=== PATIENT | female | born 2000 | race Caucasian/White ===

== ENCOUNTER → 2021-06-13 20:32 | Observation (INO) ==
[2021-06-13 20:27] LABS: Bilirubin,Urine Negative (Negative); Blood,Urine Negative (Negative); Clarity,Urine Clear (Clear); Color,Urine Colorless (Yellow); Glucose,Urine (UA) Normal (Normal); Ketones,Urine Negative (Negative); Leukocyte Esterase,Urine Negative (Negative); Nitrite,Urine Negative (Negative); PH,Urine 7.5 pH Units (5.0-8.0); Protein,Urine Negative (Neg-Trace); Specific Gravity,Urine 1.006 (1.010-1.025); Urobilinogen,Urine Normal (Normal)
== END | disposition home or self-care (01) ==
LOC: 1NENULAB
PROVIDERS: ADMIT Advanced Practice Midwife; ATTEND Advanced Practice Midwife

== ENCOUNTER → 2021-08-05 13:07 | Observation (INO) ==
[2021-08-05 11:24] LABS: Bilirubin,Urine Negative (Negative); Blood,Urine Negative (Negative); Clarity,Urine Clear (Clear); Color,Urine Light-Yellow (Yellow); Glucose,Urine (UA) Normal (Normal); Ketones,Urine Negative (Negative); Leukocyte Esterase,Urine Negative (Negative); Nitrite,Urine Negative (Negative); Protein,Urine Negative (Neg-Trace); Urobilinogen,Urine Normal (Normal)
[2021-08-05 13:05] LABS: Trichomonas DNA Not Detected (Not Detect)
[2021-08-05 13:06] LABS: Candida DNA Not Detected (Not Detect); Gardnerella DNA Not Detected (Not Detect)
== END | disposition home or self-care (01) ==
LOC: 1NENULAB
PROVIDERS: ADMIT Advanced Practice Midwife; ATTEND Advanced Practice Midwife

== ENCOUNTER → 2021-08-09 21:55 | Observation (INO) ==
[2021-08-09 20:31] LABS: Bilirubin,Urine Negative (Negative); Blood,Urine Negative (Negative); Clarity,Urine Clear (Clear); Color,Urine Colorless (Yellow); Glucose,Urine (UA) Normal (Normal); Ketones,Urine Negative (Negative); Leukocyte Esterase,Urine Negative (Negative); Nitrite,Urine Negative (Negative); PH,Urine 6.5 pH Units (5.0-8.0); Protein,Urine Negative (Neg-Trace); Urobilinogen,Urine Normal (Normal)
[2021-08-09 21:20] LABS: Candida DNA Not Detected (Not Detect); Gardnerella DNA Not Detected (Not Detect); Trichomonas DNA Not Detected (Not Detect)
[~2021-08-09 21:55] MED LIST: Oxytocin 20 units/ LR 1000 mL 20 UNIT/1,000 ML BAG IVC SCH
== END | disposition home or self-care (01) ==
LOC: 1NENULAB
PROVIDERS: ADMIT Registered Nurse; ATTEND Registered Nurse

== ENCOUNTER 2021-09-02 10:00 | Inpatient (IN) ==
[2021-09-02] MEDS ORDERED: *HR* HYDROmorphone PF 0.5 MG/0.5 ML SYRINGE IVP PRN (10:22)
[2021-09-02] MEDS ORDERED: Ondansetron 4 MG/2 ML VIAL IVP PRN ×2 (10:22→14:53)
[2021-09-02] MEDS ORDERED: Ketorolac 30 MG/ML VIAL ONE (10:25)
[2021-09-02] MEDS ORDERED: *HR* FentaNYL (PF) 100 MCG/2 ML VIAL ONE (10:25)
[2021-09-02] MEDS ORDERED: *HR* Morphine Sulfate/PF 10 MG/10 ML AMPUL ONE (10:25)
[2021-09-02] MEDS ORDERED: Ondansetron 4 MG/2 ML VIAL ONE (10:25)
[2021-09-02] MEDS ORDERED: EPHEDrine 50 MG/ML VIAL ONE (10:25)
[2021-09-02] MEDS ORDERED: Acetaminophen IV 1,000 MG/100 ML BAG IVPB ONE (10:26)
[2021-09-02] MEDS ORDERED: CeFAZolin 2,000 MG/120 ML BAG IVPB ONE (10:37)
[2021-09-02] MEDS ORDERED: OXYTOCIN/RINGERS LACTATE 10 UNIT/166.6 ML BAG IVC ONE ×2 (10:37→14:53)
[2021-09-02] MEDS ORDERED: Metoclopramide 10 MG/2 ML VIAL IVP ONE (10:37)
[2021-09-02] MEDS ORDERED: Famotidine 20 MG/2 ML VIAL IVP ONE (10:37)
[2021-09-02] MEDS ORDERED: Azithromycin 500 MG in 0.9 % Sodium Chloride 250 ML IVPB PRN (10:37)
[2021-09-02] MEDS ORDERED: Ringers Solution, Lactated 1,000 ML ONE ×2 (10:51→10:58)
[2021-09-02] MEDS ORDERED: Ringers Solution, Lactated 1,000 ML IVC ONE (10:56)
[2021-09-02] MEDS ORDERED: Oxytocin 30 UNIT/503 ML BAG IVC ONE (10:59)
[2021-09-02 11:04] LABS: Basophils % 0.3 %; Eosinophils # 0.1 K/mcL (0.0-0.6); Eosinophils % 0.8 %; Hematocrit 39.8 % (35.3-44.9); Hemoglobin 13.3 g/dL (11.5-15.4); Immature Granulocytes % 0.6 % (0-4); Lymphocytes # 3.4 K/mcL (0.6-4.6); Lymphocytes % 35.7 %; Mean Corpuscular HGB Conc 33.4 g/dL (31.6-35.5); Mean Corpuscular Hemoglobin 30.6 pg (28.0-33.3); Mean Corpuscular Volume 91.7 fL (83.0-100.0); Monocytes # 0.8 K/mcL (0.0-1.3); Monocytes % 8.1 %; Neutrophils # 5.3 K/mcL (1.6-8.9); Platelet Count 245 K/mcL (140-400); Red Blood Count 4.34 M/mcL (3.82-4.97); Red Cell Distribution Width 11.6 % (11.5-14.5); Segmented Neutrophils % 54.5 %; White Blood Count 9.6 K/mcL (4.3-11.1)
[2021-09-02] MEDS ORDERED: *HR* Midazolam HCl 2 MG/2 ML VIAL ONE (11:47)
[2021-09-02 13:01] LABS: Amphetamine Screen,Urine Negative ng/mL (Cutoff=1000); Barbiturate Screen,Urine Negative ng/mL (Cutoff=200); Benzodiazepines Screen,Urine Negative ng/mL (Cutoff=200); Cannabinoid Screen,Urine Negative ng/mL (Cutoff = 50); Cocaine Screen,Urine Negative ng/mL (Cutoff= 300); Opiate Screen,Urine Negative ng/mL (Cutoff=300); Phencyclidine Screen,Urine Negative ng/mL (Cutoff=25)
[2021-09-02] MEDS ORDERED: Rho Immune Globulin 1,500 UNIT SYRINGE IM ONE (14:53)
[2021-09-02] MEDS ORDERED: Ringers Solution, Lactated 1,000 ML IVC SCH (14:53)
[2021-09-02] MEDS ORDERED: Metoclopramide 10 MG/2 ML VIAL IVP PRN (14:53)
[2021-09-02] MEDS ORDERED: Simethicone 80 MG TAB.CHEW PO PRN (14:53)
[2021-09-02] MEDS: Ibuprofen 600 MG TABLET PO SCH ×2 (15:29→21:24)
[2021-09-02] MEDS: Acetaminophen 325 MG TABLET PO SCH ×2 (15:29→21:24)
[2021-09-02 20:56] VITALS: O2SAT 99
[2021-09-03] MEDS: Acetaminophen 325 MG TABLET PO SCH ×4 (03:23→22:25)
[2021-09-03] MEDS: Ibuprofen 600 MG TABLET PO SCH ×4 (03:24→22:24)
[2021-09-03 03:56] LABS: Basophils % 0.2 %; Eosinophils % 0.3 %; Hematocrit 29.2 % (35.3-44.9); Immature Granulocytes % 0.6 % (0-4); Lymphocytes # 3.2 K/mcL (0.6-4.6); Lymphocytes % 24.6 %; Mean Corpuscular HGB Conc 34.2 g/dL (31.6-35.5); Mean Corpuscular Hemoglobin 31.8 pg (28.0-33.3); Mean Platelet Volume 9.9 fL (9.4-12.4); Monocytes # 1.1 K/mcL (0.0-1.3); Monocytes % 8.6 %; Neutrophils # 8.5 K/mcL (1.6-8.9); Platelet Count 201 K/mcL (140-400); Red Blood Count 3.14 M/mcL (3.82-4.97); Red Cell Distribution Width 11.9 % (11.5-14.5); Segmented Neutrophils % 65.7 %; White Blood Count 12.9 K/mcL (4.3-11.1)
[2021-09-03] MEDS: Prenatal Vit/FA 1 EACH TABLET PO SCH (08:52)
[2021-09-03] MEDS ORDERED: Prenatal Vit/FA 1 EACH TABLET PO SCH (09:00)
[2021-09-03] MEDS ORDERED: valACYclovir 500 MG TABLET PO SCH (09:00)
[2021-09-03] MEDS: *HR* OxyCODONE Immed Rel 5 MG TABLET PO PRN ×2 (11:17→20:35)
[2021-09-03] MEDS ORDERED: hydrOXYzine pamoate 25 MG CAPSULE PO PRN (12:29)
[2021-09-03] MEDS: BuPROPion XL (24 HR) 150 MG TABLET PO SCH (12:40)
[2021-09-04] MEDS: *HR* OxyCODONE Immed Rel 5 MG TABLET PO PRN ×2 (00:24→06:54)
[2021-09-04] MEDS: Acetaminophen 325 MG TABLET PO SCH ×2 (04:08→09:43)
[2021-09-04] MEDS: Ibuprofen 600 MG TABLET PO SCH ×2 (04:08→09:43)
[2021-09-04 07:31] VITALS: BP 114/66; PULSE 80; TEMP 98
[2021-09-04] MEDS: BuPROPion XL (24 HR) 150 MG TABLET PO SCH (09:43)
[2021-09-04] MEDS: Prenatal Vit/FA 1 EACH TABLET PO SCH (09:43)
== END 2021-09-04 10:54 | disposition home or self-care (01) | DRG 788 ==
LOC: 1NENULAB 10:00 → 1NENUOBS 14:52
PROVIDERS: ADMIT Student in an Organized Health Care Education/Training Program; ATTEND Student in an Organized Health Care Education/Training Program